=== PATIENT | female | born 1955 | race African-American/Black ===

== ENCOUNTER 2024-01-11 07:50 | Day surgery (SDC) | payer OTHER ==
[2024-01-11 08:02] VITALS: BMI 32.8
[2024-01-11 08:54] VITALS: RESP 20; TEMP 97.8
[2024-01-11 09:22] VITALS: BP 114/67; PULSE 74
== END 2024-01-11 09:15 | disposition home or self-care (01) ==
LOC: FASU-ENDO 07:50
PROVIDERS: ATTEND Internal Medicine Gastroenterology
PROC: 0DB68ZX Excision of Stomach, Via Natural or Artificial Opening Endoscopic, Diagnostic (ICD-10-PCS; 2024-01-11)
PROC: 0DB38ZX Excision of Lower Esophagus, Via Natural or Artificial Opening Endoscopic, Diagnostic (ICD-10-PCS; 2024-01-11)
PROC: 0DB98ZX Excision of Duodenum, Via Natural or Artificial Opening Endoscopic, Diagnostic (ICD-10-PCS; principal; 2024-01-11 08:22)
DX: K29.50 Unspecified chronic gastritis without bleeding (principal); K21.00 Gastro-esophageal reflux disease with esophagitis, without bleeding
CPT/HCPCS: 88305-TC; 88342-TC